=== PATIENT | female | born 1995 | race Hispanic/Latino ===

== ENCOUNTER 2019-09-20 14:18 | Emergency (ER) | payer SELFPAY ==
--- NOTE | 2019-09-20 15:54 | ER ---
Nurse's Notes [facility] Name: Kassandra Coates Age: 24 yrs Sex: Female : 1995 Arrival Date: 09/20/2019 Time: 14:22 Bed 12 Private MD: Diagnosis: Person with feared health complaint in whom no diagnosis is made-possible STD exposure Presentation: 09/19 14:35 Chief complaint: Patient states: "I want to get checked for an STD. My boyfriend has sv something on his private parts.," Denies any symptoms. Coronavirus screen: Patient denies a cough. Patient denies shortness of breath or difficulty breathing. Patient denies measured and/or subjective temperature greater than 100.4F prior to today's visit. Patient denies travel on a cruise ship or to a country the [facility] currently lists as an affected area. Patient denies contact with known and/or suspected case of COVID-19. Proceed with normal triage. Ebola Screen: No symptoms or risks identified at this time. Risk Assessment: Do you want to hurt yourself or someone else? Patient reports no desire to harm self or others. Onset of symptoms was September 20, 2019. 14:35 Method Of Arrival: Ambulatory sv 14:35 Acuity: IAM 5 sv 14:36 Initial Sepsis Screen: Does the patient meet any 2 criteria? No. Patient's initial sv sepsis screen is negative. Does the patient have a suspected source of infection? No. Patient's initial sepsis screen is negative. Triage Assessment: 14:36 General: Appears in no apparent distress. comfortable, Behavior is calm, cooperative, sv appropriate for age. Pain: Denies pain. Neuro: Level of Consciousness is awake, alert, obeys commands, Oriented to person, place, time, situation, Gait is steady. Respiratory: Respiratory effort is even, unlabored. Historical: - Allergies: 14:36 No Known Allergies; sv - Immunization history:: Adult Immunizations. - Social history:: Smoking status: . Screenin:46 Abuse screen: Denies threats or abuse. Denies injuries from another. Nutritional ss screening: No deficits noted. Tuberculosis screening: Never had TB. Fall Risk None identified. Assessment: 15:46 General: Appears in no apparent distress. comfortable, Behavior is calm, cooperative. ss Pain: Denies pain. Neuro: Level of Consciousness is awake, alert. Cardiovascular: Capillary refill < 3 seconds is brisk in bilateral fingers. Respiratory: Airway is patent Respiratory effort is even, unlabored. Derm: Skin is pink, warm \\T\\ dry. normal. Musculoskeletal: Range of motion: intact in all extremities. Vital Signs: 14:36 BP 122 / 68; Pulse 67; Resp 16; Temp 99.3; Pulse Ox 100% ; Weight 108.86 kg; Height 5 sv ft. 7 in. (170.18 cm); 14:36 Body Mass Index 37.59 (108.86 kg, 170.18 cm) sv ED Course: 14:22 Patient arrived in ED. bp1 14:35 Dorita Rodriguez [facility]C [facility]. kb 14:35 Marco Madrid MD is Attending Physician. kb 14:36 Triage completed. sv 14:36 Arm band placed on. sv 15:46 Zaida Donahue, RN is Primary Nurse. ss 15:46 Patient has correct armband on for positive identification. Bed in low position. Call ss light in reach. 15:46 No provider procedures requiring assistance completed. Patient did not have IV access ss during this emergency room visit. Administered Medications: No medications were administered Outcome: 15:54 Discharge ordered by MD. kb 16:40 Discharged to home ambulatory. ss 16:40 Condition: good 16:40 Discharge instructions given to patient, Instructed on discharge instructions, follow up and referral plans. medication usage, Demonstrated understanding of instructions, follow-up care, medications, Prescriptions given X 1. 16:40 Patient left the ED. ss Signatures: Dorita Rodriguez FNP-C FNP-Ckb Verde, Stephanie, RN RN Zaida Donahue RN RN Staci Gonsalez bp1 Corrections: (The following items were deleted from the chart) 14:39 14:35 Chief complaint: Patient states: "I want to get checked for an STD. My boyfriend francesca has something on his private parts.," sv
--- NOTE | 2019-09-20 15:55 | EDPHYS ---
Physician Documentation [facility] Name: Kassandra Coates Age: 24 yrs Sex: Female : 1995 Arrival Date: 09/20/2019 Time: 14:22 Bed 12 Private MD: ED Physician Marco Madrid HPI: 09/19 15:46 This 24 yrs old Female presents to ER via Ambulatory with complaints of STD kb Exposure. 15:46 "I came to get checked for STDs". The patient has not experienced similar symptoms in kb the past. The patient has not recently seen a physician. Pt denies any symptoms or complaints. . Historical: - Allergies: 14:36 No Known Allergies; sv - Immunization history:: Adult Immunizations. - Social history:: Smoking status: . ROS: 15:45 Constitutional: Negative for fever, chills, and weight loss, Cardiovascular: Negative kb for chest pain, palpitations, and edema, Respiratory: Negative for shortness of breath, cough, wheezing, and pleuritic chest pain, Abdomen/GI: Negative for abdominal pain, nausea, vomiting, diarrhea, and constipation, : Negative for injury, bleeding, discharge, and swelling, MS/Extremity: Negative for injury and deformity, Skin: Negative for injury, rash, and discoloration, Neuro: Negative for headache, weakness, numbness, tingling, and seizure. Exam: 15:45 Constitutional: This is a well developed, well nourished patient who is awake, alert, kb and in no acute distress. Head/Face: Normocephalic, atraumatic. Chest/axilla: Normal chest wall appearance and motion. Nontender with no deformity. No lesions are appreciated. Cardiovascular: Regular rate and rhythm with a normal S1 and S2. No gallops, murmurs, or rubs. Normal PMI, no JVD. No pulse deficits. Respiratory: Lungs have equal breath sounds bilaterally, clear to auscultation and percussion. No rales, rhonchi or wheezes noted. No increased work of breathing, no retractions or nasal flaring. Abdomen/GI: Soft, non-tender, with normal bowel sounds. No distension or tympany. No guarding or rebound. No evidence of tenderness throughout. Skin: Warm, dry with normal turgor. Normal color with no rashes, no lesions, and no evidence of cellulitis. MS/ Extremity: Pulses equal, no cyanosis. Neurovascular intact. Full, normal range of motion. Neuro: Awake and alert, GCS 15, oriented to person, place, time, and situation. Cranial nerves II-XII grossly intact. Motor strength 5/5 in all extremities. Sensory grossly intact. Cerebellar exam normal. Normal gait. Vital Signs: 14:36 BP 122 / 68; Pulse 67; Resp 16; Temp 99.3; Pulse Ox 100% ; Weight 108.86 kg; Height 5 sv ft. 7 in. (170.18 cm); 14:36 Body Mass Index 37.59 (108.86 kg, 170.18 cm) sv MDM: 15:17 Patient medically screened. kb 15:42 Data reviewed: vital signs, nurses notes. Data interpreted: Pulse oximetry: on room air kb is 100 %. Interpretation: normal. Counseling: I had a detailed discussion with the patient and/or guardian regarding: the historical points, exam findings, and any diagnostic results supporting the discharge/admit diagnosis, the need for outpatient follow up, an OB/Gyne specialist, to return to the emergency department if symptoms worsen or persist or if there are any questions or concerns that arise at home. ED course: Pt has no symptoms or complaints. Came in because boyfriend has lesions to penis and is being evaluated. Pt educated to follow up with [facility] or the STD clinic for preventive testing.. Administered Medications: No medications were administered Disposition: 09/20 10:28 Co-signature as Attending Physician, Marco Madrid MD I agree with the assessment and cesario plan of care. Disposition: 09/20/19 15:54 Discharged to Home. Impression: Person with feared health complaint in whom no diagnosis is made - possible STD exposure. - Condition is Stable. - Discharge Instructions: Sexually Transmitted Disease, [id number]. - Medication Reconciliation Form, Thank You Letter, Antibiotic Education, Prescription Opioid Use form. - Follow up: Emergency Department; When: As needed; Reason: Worsening of condition. Follow up: Private Physician; When: 2 - 3 days; Reason: Recheck today's complaints, Continuance of care, Re-evaluation by your physician. Signatures: Dorita Rodriguez FNP-C FNP-Ckb Verde, Stephanie, RN RN sv Anderson, Corey, MD MD cha [facility], Zaida, RN RN ss Corrections: (The following items were deleted from the chart) 09/19 15:55 15:54 09/20/2019 15:54 Discharged to Home. Impression: Person with feared health kb complaint in whom no diagnosis is made. Condition is Stable. Forms are Medication Reconciliation Form, Thank You Letter, Antibiotic Education, Prescription Opioid Use. Follow up: Emergency Department; When: As needed; Reason: Worsening of condition. Follow up: Private Physician; When: 2 - 3 days; Reason: Recheck today's complaints, Continuance of care, Re-evaluation by your physician. kb 16:40 15:55 09/20/2019 15:54 Discharged to Home. Impression: Person with feared health ss complaint in whom no diagnosis is made - possible STD exposure. Condition is Stable. Forms are Medication Reconciliation Form, Thank You Letter, Antibiotic Education, Prescription Opioid Use. Follow up: Emergency Department; When: As needed; Reason: Worsening of condition. Follow up: Private Physician; When: 2 - 3 days; Reason: Recheck today's complaints, Continuance of care, Re-evaluation by your physician. kb
[2019-09-20 17:08] VITALS: BP 122/68; TEMP 99.3; O2SAT 100
== END 2019-09-20 16:40 | disposition home or self-care (01) ==
LOC: ER 14:18
DX: Z71.1 Person with feared health complaint in whom no diagnosis is made (principal)
CPT/HCPCS: 99282